=== PATIENT | female | born 1965 | race African-American/Black ===

== ENCOUNTER 2017-04-07 14:53 | Emergency (ER) | payer OTHER, SELFPAY ==
[~2017-04-07 14:53] MED LIST: Donnatal Elixir 16.2 MG/5 ML UDCUP ONE
[2017-04-07] MEDS ORDERED: Lidocaine Viscous Sol 2% 15 ml UD Cup ONE (15:34)
[2017-04-07] MEDS ORDERED: Milk Of Magnesia 30 ML UDCUP ONE (15:34)
[2017-04-07] MEDS ORDERED: Donnatal Elixir 16.2 MG/5 ML UDCUP ONE (15:34)
[2017-04-07 15:57] LABS: #Basophils 0.1 thou/uL (0.0-0.2); #Eosinphils 0.4 thou/uL (0.0-0.7); #Monocytes 0.3 thou/uL (0.11-0.59); #Neutrophils 3.5 thou/uL (1.40-6.50); %Basophils 1.5 % (0.0-1.0); %Eosinophils 5.6 % (0.0-10.0); %Lymphocytes 31.9 % (21.0-51.0); %Monocytes 5.4 % (0.0-10.0); %Neutrophils 55.7 % (42.0-75.0); Hemoglobin 12.6 g/dL (12.0-16.0); Mean Corpuscular HGB CONC 31.8 g/dL (32.0-36.0); Mean Corpuscular Volume 91.2 fl (81.0-99.0); Mean Platelet Volume 8.9 fL (7.4-10.4); Platelet Count 239 thou/uL (130-400); Red Blood Cell (RBC) Count 4.33 mill/uL (4.20-5.40); White Blood Cell (WBC) Count 6.3 thou/uL (4.8-10.8)
[2017-04-07 16:09] LABS: Bilirubin Negative (Negative); Blood, Urine Negative (Negative); Clarity Hazy (Clear); Glucose, Urine (Dipstick) Negative (Negative); Leukocyte Negative (Negative); Nitrite Negative (Negative); Protein, Urine (Dipstick) Negative (Neg-Trace); Specific Gravity, Urine 1.025 (1.005-1.030)
[2017-04-07 16:12] LABS: Bacteria/HPF Rare-Few HPF (None Seen); RBC/HPF None Seen HPF (0-3); WBC/HPF 0-3 HPF (0-3)
[2017-04-07 16:14] LABS: ALT (SGPT) 12 U/L (8-55); AST (SGOT) 15 U/L (5-34); Alkaline Phosphatase 57 U/L (40-150); Anion Gap 13 mmol/L (10-20); BUN (Urea Nitrogen) 14 mg/dL (9.8-20.1); Bilirubin, Total 0.3 mg/dL (0.2-1.2); Calc. Creatinine Clearance 0 mL/min (70-130); Calcium 9.2 mg/dL (7.8-10.44); Carbon Dioxide 25 mmol/L (22-29); Chloride 106 mmol/L (98-107); Estimated GFR-MDRD 85; Globulin 3.6 g/dL (2.4-3.5); Glucose 94 mg/dL (70-105); Lipase 21 U/L (8-78); Protein, Total 7.6 g/dL (6.0-8.3); Sodium 140 mmol/L (136-145)
== END 2017-04-07 16:30 | disposition home or self-care (01) ==
LOC: MADERS 14:53
DX: K29.00 Acute gastritis without bleeding (principal); K21.9 Gastro-esophageal reflux disease without esophagitis
CPT/HCPCS: 36415; 80053; 81001; 82150; 83690; 85025; 87086; 93005; 94760

== ENCOUNTER 2018-01-08 21:44 | Emergency (ER) | payer OTHER, SELFPAY ==
[2018-01-08] MEDS ORDERED: Fentanyl 100 MCG/2 ML VIAL ONE (22:10)
[2018-01-08] MEDS ORDERED: Ondansetron HCl/PF 4 MG/2 ML Vial ONE (22:10)
--- NOTE | 2018-01-09 00:07 | CT ---
CT CERVICAL SPINE WITHOUT CONTRAST: INDICATIONS: Cervical spine injury. COMPARISON: None. FINDINGS: No acute fracture or subluxation is evident. There is mild multilevel spondylosis of the cervical sp ine. Spine alignment is preserved. The osseous central canal is preserved. Prevertebral soft tiss ues are normal appearing. The craniocervical junction appears within normal limits. The lung apices are clear. IMPRESSION: No acute osseous abnormality. POS: [facility]
--- NOTE | 2018-01-09 00:09 | CT ---
CT LUMBAR SPINE WITHOUT CONTRAST: INDICATIONS: History of back injury with back pain. COMPARISON: None. FINDINGS: There are five lumbar type vertebrae. Vertebral body heights are preserved. Spine alignment is with in normal limits. The osseous central canal is preserved. The visualized aspects of the retroperito neum and paravertebral soft tissues reveal no definite acute abnormality. There is moderate degenera tive change of both SI joints bilaterally. IMPRESSION: 1. No acute fracture or subluxation demonstrated. 2. Moderate spondylosis of the lumbar spine. 3. Moderate sacroiliac joint osteoarthrosis bilaterally. POS: [facility]
== END 2018-01-08 23:30 | disposition home or self-care (01) ==
LOC: MADERS 21:44
DX: S13.9XXA Sprain of joints and ligaments of unspecified parts of neck, initial encounter (principal); M54.5 Low back pain; K21.9 Gastro-esophageal reflux disease without esophagitis; Z87.891 Personal history of nicotine dependence; Z79.899 Other long term (current) drug therapy; V44.5XXA Car driver injured in collision with heavy transport vehicle or bus in traffic accident, initial encounter
CPT/HCPCS: 72125; 72131; 96374; 96375; J2405; J3010

== ENCOUNTER 2019-03-01 07:36 | Emergency (ER) | payer SELFPAY | END 2019-03-01 08:27 | disposition home or self-care (01) | LOC: MADERS 07:36 | DX: S46.911A Strain of unspecified muscle, fascia and tendon at shoulder and upper arm level, right arm, initial encounter (principal); K21.9 Gastro-esophageal reflux disease without esophagitis; X58.XXXA Exposure to other specified factors, initial encounter | CPT/HCPCS: 93005 ==

== ENCOUNTER 2022-05-18 22:36 | Emergency (ER) | payer BC, SELFPAY ==
[2022-05-18] MEDS ORDERED: Ibuprofen 800 MG TAB ONE (23:12)
== END 2022-05-18 23:43 | disposition home or self-care (01) ==
LOC: MADERS 22:36
DX: M21.41 Flat foot [pes planus] (acquired), right foot (principal); F17.200 Nicotine dependence, unspecified, uncomplicated

== ENCOUNTER 2022-07-14 06:14 | Emergency (ER) | payer OTHER, SELFPAY ==
[2022-07-14 06:54] LABS: Bilirubin Negative (Negative); Blood, Urine Negative (Negative); Clarity Clear (Clear); Glucose, Urine (Dipstick) Negative (Negative); Ketone, Urine Negative (Negative); Leukocyte Negative (Negative); Nitrite Negative (Negative); Protein, Urine (Dipstick) Negative (Neg-Trace); Urobilinogen 0.2 mg/dL (Less than 2); pH, Urine 5.5 (5.0-9.0)
[2022-07-14 06:58] LABS: Specific Gravity, Urine 1.024 (1.002-1.036)
[2022-07-14] MEDS ORDERED: Lactated Ringer's 1,000 ML ONE (07:06)
[2022-07-14] MEDS ORDERED: Ketorolac Tromethamine 30 MG/ML VIAL ONE (07:06)
[2022-07-14] MEDS ORDERED: Famotidine/PF 20 mg/2ml Vial ONE (07:06)
[2022-07-14 07:39] LABS: Hemoglobin 12.1 g/dL (12.0-16.0); Mean Corpuscular HGB CONC 31.8 g/dL (32.0-36.0); Mean Corpuscular Hemoglobin 28.9 pg (27.0-31.0); Platelet Count 198 10x3/uL (130-400); RBC Distribution Width 12.2 % (11.5-14.5); Red Blood Cell (RBC) Count 4.19 mill/uL (4.20-5.40)
[2022-07-14 07:50] LABS: ALT (SGPT) 9 U/L (8-55); AST (SGOT) 14 U/L (5-34); Albumin 3.9 g/dL (3.5-5.0); Alkaline Phosphatase 47 U/L (40-110); Anion Gap 12 mmol/L (10-20); BUN (Urea Nitrogen) 10 mg/dL (9.8-20.1); Bilirubin, Total 0.4 mg/dL (0.2-1.2); Calc. Creatinine Clearance 0 mL/min (70-130); Calcium 9.3 mg/dL (7.8-10.44); Carbon Dioxide 25 mmol/L (22-29); Chloride 106 mmol/L (98-107); Estimated GFR 89; Glucose 94 mg/dL (70-105); Lipase 20 U/L (8-78); Potassium 3.6 mmol/L (3.5-5.1); Protein, Total 6.9 g/dL (6.0-8.3); Sodium 139 mmol/L (136-145)
[2022-07-14 07:52] LABS: MDiff Complete? YES; Manual Diff?? YES; Neutrophil 53 % (42-75)
[2022-07-14 07:53] LABS: Anisocytosis SLIGHT = 6-15 cells (100X) (0-5/hpf); Band 1 % (5-11); Eosinophils 7 % (0-10); Lymphocytes 32 % (21-51); Monocytes 7 % (0-10)
[2022-07-14 07:54] LABS: Platelet Morphology Comment Appears Adequate
[2022-07-14] MEDS ORDERED: Dicyclomine 10 MG CAP ONE (08:08)
[2022-07-14] MEDS ORDERED: Iopamidol 370 76% 100 ML VIAL ONE (09:37)
== END 2022-07-14 08:42 | disposition home or self-care (01) ==
LOC: MADERS 06:14
DX: R10.31 Right lower quadrant pain (principal)
CPT/HCPCS: 71045; 74177; 80053; 81003; 83605; 83690; 83880; 84484; 85025; 85379; 93005; 94760; 96361; 96374; 96375; J1885; J7120; Q9967; S0028

== ENCOUNTER 2022-12-07 14:06 | Emergency (ER) | payer OTHER ==
[2022-12-07] MEDS ORDERED: Ketorolac Tromethamine 30 MG/ML VIAL ONE (15:36)
== END 2022-12-07 16:50 | disposition home or self-care (01) ==
LOC: MADERS 14:06
DX: S93.421A Sprain of deltoid ligament of right ankle, initial encounter (principal); S83.411A Sprain of medial collateral ligament of right knee, initial encounter; F17.210 Nicotine dependence, cigarettes, uncomplicated; X50.1XXA Overexertion from prolonged static or awkward postures, initial encounter
CPT/HCPCS: 96372; J1885

== ENCOUNTER 2023-01-16 11:19 | Emergency (ER) | payer OTHER ==
[2023-01-16] MEDS ORDERED: Orphenadrine Citrate 60 MG/2 ML VIAL ONE (12:38)
[2023-01-16] MEDS ORDERED: Ketorolac Tromethamine 60 MG/2 ML VIAL ONE (12:38)
== END 2023-01-16 13:51 | disposition home or self-care (01) ==
LOC: MADERS 11:19
DX: S43.402A Unspecified sprain of left shoulder joint, initial encounter (principal); F17.210 Nicotine dependence, cigarettes, uncomplicated; W18.30XA Fall on same level, unspecified, initial encounter
CPT/HCPCS: 96372; 99283; J1885; J2360

== ENCOUNTER 2023-02-04 06:03 | Emergency (ER) | payer OTHER ==
[2023-02-04] MEDS ORDERED: diphenhydrAMINE 50 MG/ML VIAL ONE (06:54)
[2023-02-04] MEDS ORDERED: Prochlorperazine 10 MG/2 ML VIAL ONE (06:54)
[2023-02-04] MEDS ORDERED: Lactated Ringer's 1,000 ML ONE (06:54)
[2023-02-04] MEDS ORDERED: methylPREDNISolone Sod Succ/PF 125 MG/2 ML VIAL ONE (06:54)
[2023-02-04 07:02] LABS: #Basophils 0.1 thou/uL (0.0-0.2); #Eosinphils 0.3 thou/uL (0.0-0.7); #Lymphocytes 1.4 thou/uL (1.20-3.40); #Monocytes 0.4 thou/uL (0.11-0.59); #Neutrophils 2.6 thou/uL (1.40-6.50); %Basophils 1.5 % (0.0-1.0); %Eosinophils 6.3 % (0.0-10.0); %Lymphocytes 29.4 % (21.0-51.0); %Monocytes 8.4 % (0.0-10.0); %Neutrophils 54.5 % (42.0-75.0); Hematocrit 39.3 % (36.0-47.0); Hemoglobin 12.1 g/dL (12.0-16.0); Mean Corpuscular HGB CONC 30.8 g/dL (32.0-36.0); Mean Corpuscular Hemoglobin 28.9 pg (27.0-31.0); Mean Corpuscular Volume 93.6 fl (78.0-98.0); Mean Platelet Volume 10.6 fL (7.4-10.4); Platelet Count 202 10x3/uL (130-400); RBC Distribution Width 12.9 % (11.5-14.5); White Blood Cell (WBC) Count 4.7 10x3/uL (4.8-10.8)
[2023-02-04 07:12] LABS: INR-International Normal Ratio 0.9; Prothrombin Time 12.2 sec (12.0-14.7)
[2023-02-04 07:13] LABS: PTT 26.8 sec (22.9-36.1)
[2023-02-04 07:19] LABS: ALT (SGPT) 10 U/L (8-55); AST (SGOT) 15 U/L (5-34); Albumin 4.2 g/dL (3.5-5.0); Alkaline Phosphatase 53 U/L (40-110); Anion Gap 14 mmol/L (10-20); BUN (Urea Nitrogen) 16 mg/dL (9.8-20.1); Bilirubin, Total 0.4 mg/dL (0.2-1.2); Calc. Creatinine Clearance 0 mL/min (70-130); Carbon Dioxide 25 mmol/L (22-29); Chloride 105 mmol/L (98-107); Estimated GFR 89; Glucose 111 mg/dL (70-105); Lipase 21 U/L (8-78); Potassium 3.8 mmol/L (3.5-5.1); Protein, Total 7.2 g/dL (6.0-8.3); Sodium 140 mmol/L (136-145)
[2023-02-04 07:24] LABS: Troponin I 0.012 ng/mL (< 0.028)
[2023-02-04 07:57] LABS: Bilirubin Negative (Negative); Blood, Urine Negative (Negative); Clarity Clear (Clear); Glucose, Urine (Dipstick) Negative (Negative); Ketone, Urine Negative (Negative); Leukocyte Negative (Negative); Nitrite Negative (Negative); Protein, Urine (Dipstick) Negative (Neg-Trace); Urobilinogen 0.2 mg/dL (Less than 2)
[2023-02-04 08:00] LABS: Bacteria/HPF Rare-Few HPF (None Seen); CAUTI Indications for Culture Dysuria,urgency,freq; RBC/HPF 0-3 HPF (0-3); Squamous Epithelial 0-3 HPF (0-3); WBC/HPF 0-3 HPF (0-3)
[2023-02-04 08:02] LABS: Urine Culture Reflex No No
== END 2023-02-04 08:02 | disposition home or self-care (01) ==
LOC: MADERS 06:03
DX: G43.809 Other migraine, not intractable, without status migrainosus (principal)
CPT/HCPCS: 70450; 71045; 80053; 81001; 83690; 83880; 84484; 85025; 85610; 85730; 93005; 94760; 96374; 96375; J0780; J1200; J2930; J7120

== ENCOUNTER 2023-02-22 14:12 | Outpatient (CLI) | payer OTHER ==
[2023-02-22 15:01] LABS: ALT (SGPT) 12 U/L (8-55); AST (SGOT) 18 U/L (5-34); Albumin 4.2 g/dL (3.5-5.0); Alkaline Phosphatase 54 U/L (40-110); Anion Gap 14 mmol/L (10-20); BUN (Urea Nitrogen) 17 mg/dL (9.8-20.1); Bilirubin, Total 0.6 mg/dL (0.2-1.2); Calc. Creatinine Clearance 0 mL/min (70-130); Calcium 9.4 mg/dL (7.8-10.44); Carbon Dioxide 26 mmol/L (22-29); Cardiac Risk 4.3 (Less than 4.5); Chloride 104 mmol/L (98-107); Cholesterol 197 mg/dl (< 200 Desired); Estimated GFR 92; Globulin 3.4 g/dL (2.4-3.5); Glucose 77 mg/dL (70-105); HDL Cholesterol 46 mg/dL (>60 Neg Risk); LDL Cholesterol, Calculated 138 mg/dL; Potassium 4.1 mmol/L (3.5-5.1); Protein, Total 7.6 g/dL (6.0-8.3); Sodium 140 mmol/L (136-145); Triglycerides 64 mg/dL (Less than 150)
[2023-02-22 15:12] LABS: Thyroid Stimulating Hormone 1.161 uIU/mL (0.35-4.94)
[2023-02-22 23:25] LABS: Hemoglobin A1c 5.6 % (4.0-6.0)
[2023-02-22 23:46] LABS: Vitamin D, 25 Hydroxy 7.7 ng/ml (> 30.0)
== END 2023-02-22 14:13 | disposition home or self-care (01) ==
LOC: MADLABBHPM 14:12
PROVIDERS: ATTEND Family Medicine
DX: E66.01 Morbid (severe) obesity due to excess calories (principal); Z01.419 Encounter for gynecological examination (general) (routine) without abnormal findings
CPT/HCPCS: 80053; 80061; 82306; 83036; 84443

== ENCOUNTER 2023-02-23 17:00 | Outpatient (CLI) | payer OTHER | END 2023-02-23 17:01 | disposition home or self-care (01) | LOC: MADRAD 17:00 | PROVIDERS: ATTEND Family Medicine | DX: M25.471 Effusion, right ankle (principal); M25.571 Pain in right ankle and joints of right foot; M21.961 Unspecified acquired deformity of right lower leg ==

== ENCOUNTER 2025-03-16 08:43 | Emergency (ER) | payer OTHER ==
[2025-03-16] MEDS ORDERED: Amoxicillin/Potassium Clav 875 MG TAB ONE (09:49)
== END 2025-03-16 10:15 | disposition home or self-care (01) ==
LOC: MADERS 08:43
DX: R05.9 Cough, unspecified (principal); I10 Essential (primary) hypertension; Z87.891 Personal history of nicotine dependence
CPT/HCPCS: 71046